=== PATIENT | female | born 1975 | race Caucasian/White ===

== ENCOUNTER → 2023-06-14 17:54 | Outpatient (REF) | payer OTHER, SELFPAY | LOC: WDC 17:54 | PROVIDERS: ATTENDING PHYSICIAN Obstetrics & Gynecology; FAMILY PHYSICIAN Family Medicine | DX: Z12.31 Encounter for screening mammogram for malignant neoplasm of breast (principal) | CPT/HCPCS: 77063; 77067 ==

== ENCOUNTER → 2023-06-19 09:01 | Outpatient (REF) | payer OTHER, SELFPAY | LOC: WDC 09:01 | PROVIDERS: ATTENDING PHYSICIAN Obstetrics & Gynecology; FAMILY PHYSICIAN Family Medicine | DX: R92.8 Other abnormal and inconclusive findings on diagnostic imaging of breast (principal) | CPT/HCPCS: 76642 ==

== ENCOUNTER → 2024-03-07 14:20 | Outpatient (REF) | payer BC, SELFPAY | LOC: RAD 14:20 | PROVIDERS: ATTENDING PHYSICIAN Physician Assistant | DX: M53.3 Sacrococcygeal disorders, not elsewhere classified (principal) | CPT/HCPCS: 72220 ==

== ENCOUNTER → 2024-06-17 16:56 | Outpatient (REF) | payer BC, SELFPAY | LOC: WDC 16:56 | PROVIDERS: ATTENDING PHYSICIAN Family Medicine | DX: Z12.31 Encounter for screening mammogram for malignant neoplasm of breast (principal) | CPT/HCPCS: 77063; 77067 ==

== ENCOUNTER → 2024-07-22 09:02 | Outpatient (REF) | payer BC, SELFPAY | LOC: WDC 09:02 | PROVIDERS: ATTENDING PHYSICIAN Obstetrics & Gynecology; FAMILY PHYSICIAN Family Medicine | DX: N63.20 Unspecified lump in the left breast, unspecified quadrant (principal); N63.42 Unspecified lump in left breast, subareolar | CPT/HCPCS: 76642 ==